=== PATIENT | female | born 1990 | race Caucasian/White ===

== ENCOUNTER 2020-01-07 16:15 | Emergency (ER) | payer OTHER ==
[2020-01-07 17:19] VITALS: BP 106/65; PULSE 82; RESP 18; TEMP 97.9
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
[2020-01-07] MEDS ORDERED: ONDANSETRON ODT 4 MG TAB PO STA (17:34)
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
== END 2020-01-07 18:35 | disposition home or self-care (01) ==
LOC: EC 16:15
DX: S06.0X0A Concussion without loss of consciousness, initial encounter (principal); Z88.6 Allergy status to analgesic agent; Z88.0 Allergy status to penicillin; W51.XXXA Accidental striking against or bumped into by another person, initial encounter; Y92.69 Other specified industrial and construction area as the place of occurrence of the external cause; Y99.0 Civilian activity done for income or pay
CPT/HCPCS: 70450; 99284

== ENCOUNTER → 2020-01-08 | Outpatient (CLI) | payer OTHER ==
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
== END | disposition home or self-care (01) ==
LOC: RADCTMAIN 12:17 → MERGE 12:17
PROVIDERS: ATTEND Emergency Medicine
DX: S13.4XXA Sprain of ligaments of cervical spine, initial encounter (principal)
CPT/HCPCS: 72125

== ENCOUNTER → 2020-01-10 | Outpatient (CLI) | payer OTHER ==
--- NOTE | 2020-01-10 09:49 | CT ---
EXAMINATION TYPE: CT brain wo con DATE OF EXAM: 01/10/2020 COMPARISON: 01/07/2020 HISTORY: 29-year-old female S00.83XD, headache, dizziness, light sensitivity, contusion of other part of head. TECHNIQUE: Examination was done in axial plane without intravenous contrast. Coronal and sagittal r econstructions performed. CT DLP: 1085 mGycm Automated exposure control for dose reduction was used. FINDINGS: There is no evidence of acute intracranial hemorrhage, acute ischemic changes, mass, mass-effect, or extra-axial fluid collection. There is no effacement of cerebral sulci or basal subarachnoid cister ns. There is no hydrocephalus. There is no midline shift. Chahal-white matter distinction is preserv ed. Paranasal sinuses and mastoid air cells are well pneumatized. Orbits and globes are intact. IMPRESSION: Stable exam without acute intracranial abnormality seen.
== END | disposition home or self-care (01) ==
LOC: RADCTMAIN 09:19
PROVIDERS: ATTEND Emergency Medicine
DX: S00.83XD Contusion of other part of head, subsequent encounter (principal)
CPT/HCPCS: 70450

== ENCOUNTER → 2020-02-04 | Outpatient (CLI) | payer OTHER ==
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
== END | disposition home or self-care (01) ==
LOC: RADCTMAIN 12:58
PROVIDERS: ATTEND Emergency Medicine
DX: S00.83XA Contusion of other part of head, initial encounter (principal); S13.4XXA Sprain of ligaments of cervical spine, initial encounter
CPT/HCPCS: 70450; 72125

== ENCOUNTER 2020-10-20 20:28 | Emergency (ER) | payer OTHER ==
[2020-10-20 20:53] VITALS: TEMP 98.2
[2020-10-20] MEDS ORDERED: SODIUM CHLORIDE 0.9% 500 ML 500 ML IV STA (21:40)
[2020-10-20] MEDS ORDERED: SODIUM CHLORIDE 0.9% 1,000 ML IV STA (21:40)
[2020-10-20] MEDS ORDERED: METOCLOPRAMIDE 5 MG/ML 2 ML VIAL IVP STA (21:40)
[2020-10-20] MEDS ORDERED: DEXAMETHASONE SOD PHOSPHATE 10 MG/ML 1 ML VIAL IV STA (21:40)
[2020-10-20] MEDS ORDERED: MAGNESIUM SULFATE-D5W PMX 1 GM in DEXTROSE/WATER 1 100ML.BAG IVPB ONE (21:41)
[2020-10-20] MEDS ORDERED: ACETAMINOPHEN TAB 500 MG TAB PO STA (21:43)
--- NOTE | 2020-10-20 21:46 | CT ---
EXAMINATION TYPE: CT brain wo con DATE OF EXAM: 10/20/2020 HISTORY: headaches x6 days. CT DLP: 1078.4 mGycm. Automated Exposure Control for Dose Reduction was Utilized. TECHNIQUE: CT scan of the head is performed without contrast. COMPARISON: 02/04/2020 FINDINGS: There is no acute intracranial hemorrhage, midline shift, or mass effect identified. Brain parenchyma appears normal. The ventricles, sulci, and cisterns are normal in size and configuration. No extra-axial fluid collection. No depressed calvarial fracture. The globes are grossly symmetric. V isualized sinuses and mastoid air cells are clear. IMPRESSION: No acute intracranial hemorrhage, midline shift, or mass effect.
--- NOTE | 2020-10-20 23:33 | ED ---
Headache HPI - General Chief Complaint: Headache Stated Complaint: Face numbness,Head pain Time Seen by Provider: 10/20/20 21:24 Mode of arrival: wheelchair Limitations: no limitations - History of Present Illness Initial Comments: This 30-year-old female presents complaining of a headache. She states that it is behind her right eye and into her right face and also into her right occipital region. This been present for 2 days. She did try some Tylenol at home as well as some Imitrex. She did not have any significant relief. She has a long history of migraine headaches that states that this one feels somewhat different than her significant than normal. It was gradual in onset. She has some slight pain into her right neck. She denies any fevers or chills. She den ies any visual complaints other than photophobia. She also has had some phonophobia. No other modifying factors. - Related Data Home Medications Medication Instructions Recorded Confirmed INSULIN LISPRO (For Pump) [humaLOG 0.01 units SQ-PUMP CONTINUOUS 01/03/20 10/20/20 (For Pump)] Previous Rx's Medication Instructions Recorded Butalb/Acetaminophen/Caffeine 1 - 2 each PO Q4H PRN #20 tab 10/20/20 [Fioricet] Allergies Allergy/AdvReac Type Severity Reaction Status Date / Time aspirin Allergy Unknown Verified 10/20/20 22:22 ibuprofen [From Motrin] Allergy Unknown Verified 10/20/20 22:22 Penicillins Allergy Unknown Verified 10/20/20 22:22 Review of Systems ROS Statement: Those systems with pertinent positive or pertinent negative responses have been documented in the HPI. ROS Other: All systems not noted in ROS Statement are negative. Past Medical History Past Medical History: Diabetes Mellitus, Fibromyalgia, No Reported History, Rheumatoid Arthritis (RA) Additional Past Medical History / Comment(s): POTS, EDS, History of Any Multi-Drug Resistant Organisms: None Reported Past Surgical History: Appendectomy, Section, No Surgical Hx Reported Past Psychological History: Anxiety Smoking Status: Never smoker Past Alcohol Use History: Occasional Past Drug Use History: None Reported General Exam - General Exam Comments Initial Comments: GENERAL: The patient is well nourished and well hydrated. VITAL SIGNS: Heart rate, blood pressure, respiratory rate reviewed as recorded in nurse's notes. EYES: Pupils are round and reactive. Extraocular movements are intact. No conjunctival / lid redness or swelling. ENT: No external evidence of injury, swelling, or ecchymosis. Airway is patent. Throat is clear. NECK: Mild tenderness to the right paracervical musculature and slightly in the right suboccipital region. HEART: Regular rate and rhythm. Good peripheral pulses. LUNGS/CHEST: Breath sounds clear and equal bilaterally. No rales, rhonchi, or wheezes. No ecchymosis, subcutaneous emphysema, or tenderness. ABDOMEN: Abdomen soft without tenderness. No palpable masses or organomegaly. No peritoneal signs. No abdominal wall swelling or ecchymosis. EXTREMITIES: No extremity tenderness. Normal muscle tone and function. No thoracolumbar tenderness. NEUROLOGIC: Sensation is grossly intact. Cranial nerve exam reveals face is symmetrical, tongue is midline, speech is clear. SKIN: No abrasions or ecchymosis is noted. No induration or masses noted. PSYCHIATRIC: Alert and oriented. Appropriate behavior and judgment. Limitations: no limitations Course Vital Signs 10/20/20 20:49 Temperature 98.2 F Pulse Rate 106 H Respiratory 18 Rate Blood Pressure 121/77 O2 Sat by Pulse 97 Oximetry Medical Decision Making - Medical Decision Making The patient was seen and examined. All diagnostics are reviewed. The computed tomography scan of the brain does not show any acute abnormalities. IV is started and she is hydrated. She receives Reglan, magnesium, and Decadron intravenously. She also receives Tylenol orally. She is feeling significantly improved on recheck. Toradol is avoided due to her ALLERGIES. It is felt as though she would benefit from discharge at this point in time. Return parameters are discussed. Close follow-up recommended. She will also be prescribed some Fioricet and referred to neurology. Disposition Clinical Impression: Migraine Disposition: HOME SELF-CARE Condition: Good Instructions (If sedation given, give patient instructions): Acute Headache (ED) Prescriptions: Butalb/Acetaminophen/Caffeine [Fioricet] 1 - 2 each PO Q4H PRN #20 tab PRN Reason: Headache Is patient prescribed a controlled substance at d/c from ED?: No Referrals: Bernardo Avendano MD [Primary Care Provider] - 1-2 days Kamryn Lopez MD [REFERRING] - As Soon As Possible Time of Disposition: 23:32
[2020-10-20 23:58] VITALS: BP 107/66; PULSE 96; RESP 16
== END 2020-10-20 23:55 | disposition home or self-care (01) ==
LOC: EC 20:28
DX: G43.909 Migraine, unspecified, not intractable, without status migrainosus (principal); E11.9 Type 2 diabetes mellitus without complications; F41.9 Anxiety disorder, unspecified; Z90.49 Acquired absence of other specified parts of digestive tract; Z79.4 Long term (current) use of insulin; Z88.0 Allergy status to penicillin; Z88.6 Allergy status to analgesic agent
CPT/HCPCS: 99284; 96365; 96375 ×2; 70450; J1100; J2765; J3475

== ENCOUNTER 2020-11-05 17:23 | Emergency (ER) | payer OTHER ==
[2020-11-05 17:35] VITALS: BP 117/74; PULSE 97; RESP 18; TEMP 99
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
== END 2020-11-05 18:55 | disposition home or self-care (01) ==
LOC: EC 17:23
DX: S93.401A Sprain of unspecified ligament of right ankle, initial encounter (principal); E11.9 Type 2 diabetes mellitus without complications; Z79.4 Long term (current) use of insulin; Z88.0 Allergy status to penicillin; Z88.6 Allergy status to analgesic agent; W20.8XXA Other cause of strike by thrown, projected or falling object, initial encounter
CPT/HCPCS: 99283

== ENCOUNTER 2021-04-20 07:51 | Emergency (ER) | payer OTHER ==
[2021-04-20 08:10] VITALS: BP 109/80; PULSE 76; TEMP 97.8
[2021-04-20] MEDS ORDERED: HYDROmorphone 1 MG/ML 1 ML SYRINGE IM STA (08:28)
--- NOTE | 2021-04-20 08:55 | ED ---
General Adult HPI - General Chief complaint: Extremity Injury, Lower Stated complaint: fall Time Seen by Provider: 04/20/21 07:54 Source: patient, EMS, RN notes reviewed Mode of arrival: EMS Limitations: no limitations - History of Present Illness Initial comments: This is a 31-year-old female presents emergency Department with chief complaint of slip and fall. She was outside walking her dog when she slipped on some ice. Patient states that she has severe low back, pelvic pain. 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 Patient states that the pain radiates on her leg she denies any bowel incontinence or bladder retention or saddle anesthesias. She has no abdominal pain no head injury no loss conscious. Patient did not receive any pain meds on EMS she initially was not wanting pain meds she states she wants to try to manage her pain. Patient denies any loss of strength of her lower extremities. - Related Data Home Medications Medication Instructions Recorded Confirmed INSULIN LISPRO (For Pump) [humaLOG 0.01 units SQ-PUMP CONTINUOUS 01/03/20 04/20/21 (For Pump)] Control (Unknown) 1 tab PO DAILY 04/20/21 04/20/21 Previous Rx's Medication Instructions Recorded HYDROcodone/APAP 7.5-325MG [[place] 1 tab PO Q6HR PRN 3 Days #12 tab 04/20/21 7.5-325] Allergies Allergy/AdvReac Type Severity Reaction Status Date / Time aspirin Allergy Anaphylaxis Verified 04/20/21 09:10 ibuprofen [From Motrin] Allergy Anaphylaxis Verified 04/20/21 09:10 latex Allergy Rash/Hives Verified 04/20/21 09:12 Penicillins Allergy Anaphylaxis Verified 04/20/21 09:10 Review of Systems ROS Statement: Those systems with pertinent positive or pertinent negative responses have been documented in the HPI. ROS Other: All systems not noted in ROS Statement are negative. 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 Absent: scleral icterus, conjunctival injection, periorbital swelling ENT exam: Present: normal exam, mucous membranes moist Neck exam: Present: normal inspection, full ROM. Absent: tenderness, meningismus, lymphadenopathy Respiratory exam: Present: normal lung sounds bilaterally. Absent: respiratory distress, wheezes, rales, rhonchi, stridor, chest wall tenderness Cardiovascular Exam: Present: regular rate, normal rhythm, normal heart sounds. Absent: systolic murmur, diastolic murmur, rubs, gallop, clicks GI/Abdominal exam: Present: soft, normal bowel sounds. Absent: distended, tenderness, guarding, rebound, rigid Extremities exam: Present: other (Lower extremity strength equal bilaterally ne urovascular intact equal warmth there is tenderness in the diffuse in the pelvic, buttocks region) Back exam: Present: tenderness (Lumbar), paraspinal tenderness, vertebral te nderness. Absent: full ROM, CVA tenderness (R), CVA tenderness (L) Neurological exam: Present: alert, oriented X3, CN II-XII intact, reflexes normal. Absent: motor sensory deficit Course Vital Signs 04/20/21 07:57 Temperature 97.8 F Pulse Rate 76 Blood Pressure 109/80 O2 Sat by Pulse 100 Oximetry Medical Decision Making - Medical Decision Making CT shows evidence of sacral fracture. Patient is neurologically intact. Patient does not have any lumbar fractures. She'll be discharged with pain control and follow-up return parameters were discussed. - Lab Data Lab Results 04/20/21 Range/Units 08:20 Urine HCG, Qual Not Detected (Not Detectd) Disposition Clinical Impression: Sacral fracture Disposition: HOME SELF-CARE Condition: Stable Instructions (If sedation given, give patient instructions): Sacral Fracture (ED) Additional Instructions: Please return to the Emergency Department if symptoms worsen or any other concerns. Prescriptions: HYDROcodone/APAP 7.5-325MG [[place] 7.5-325] 1 tab PO Q6HR PRN 3 Days #12 tab PRN Reason: pain Is patient prescribed a controlled substance at d/c from ED?: Yes When asked, does pt state using other controlled substances?: No If prescribed controlled substance>3 days was MAPS reviewed?: Prescribed <3 Days If opioid is for acute pain is fill amount 7 days or less?: Yes If Rx opioid, was Start Talking consent form obtained?: Yes Referrals: Bernardo Avendano MD [Primary Care Provider] - 1-2 days Sruthi Campbell DO [Doctor of Osteopathic Medicine] - 1-2 days Time of Disposition: 11:09
--- NOTE | 2021-04-20 10:48 | CT ---
EXAMINATION TYPE: CT lumbar spine wo con, CT pelvis wo con DATE OF EXAM: 04/20/2021 10:06 AM COMPARISON: None available HISTORY: Fall on ice today. Low back and pelvic pain. (accession [id number]), Fall on ice today. Low b ack and pelvic pain. (accession [id number]) CT DLP: 673.5 (accession [id number]), 276.4 (accession [id number]) mGycm Automated exposure control for dose reduction was used. Technique: Unenhanced multiplanar CT of the lumbar spine and pelvis was performed. Bone and soft tis stanley window settings are submitted as well as coronal and sagittal reconstructions. FINDINGS: Preserved lumbar lordosis. No significant anterolisthesis or retrolisthesis. No definite vertebral mp dy collapse or acute displaced fracture. No significant bony degenerative changes of the lumbar spine . Maintained intervertebral disc spaces. No facet dislocation or significant subluxation. No signific ant central spinal canal stenosis or neuroforaminal stenosis. No gross paraspinal lesion. A subtle cortical irregularity and linear lucency seen on the right side of the first coccygeal segme nt (image #43, series 202) suggestive of a subtle nondisplaced fracture, please correlate clinically. Minimal adjacent fat stranding is noted. Questionable subtle nondisplaced fracture of the inferior a spect of the fifth sacral segment with overlying mild fat stranding/small hematoma. This could be acu te or chronic. No other definite acute pelvic bone or hip fracture identified. Retroverted uterus. Grossly unremarka ble urinary bladder. No gross adnexal mass. Significant fecal loading of the visualized portion of th e colon. No sizable pelvic hematoma or collection. No suspicious pelvic lymphadenopathy. IMPRESSION: 1. No acute traumatic bony injury of the lumbar spine. 2. Suspected subtle nondisplaced fracture of the first coccygeal segment with questionable nondisplac ed fracture of the fifth sacral segment as described above. The latter could be acute or chronic, ple ase correlate clinically. No other definite pelvic bone fracture identified. Incidental findings as d escribed above.
== END 2021-04-20 11:38 | disposition home or self-care (01) ==
LOC: EC 07:51
DX: S32.10XA Unspecified fracture of sacrum, initial encounter for closed fracture (principal); E11.9 Type 2 diabetes mellitus without complications; M06.9 Rheumatoid arthritis, unspecified; F41.9 Anxiety disorder, unspecified; Z79.4 Long term (current) use of insulin; W00.0XXA Fall on same level due to ice and snow, initial encounter; Y93.01 Activity, walking, marching and hiking
CPT/HCPCS: 99284; 96372; 81025; 72192; 72131; J1170

== ENCOUNTER 2021-04-22 13:22 | Emergency (ER) | payer OTHER ==
[2021-04-22 13:31] VITALS: BP 117/76; PULSE 97; RESP 18; TEMP 98.1
--- NOTE | 2021-04-22 14:05 | ED ---
Lower Extremity Injury HPI - General Chief Complaint: Recheck/Abnormal Lab/Rx Stated Complaint: Revisit/Sacral Fracture Time Seen by Provider: 04/22/21 13:34 Source: patient, RN notes reviewed Mode of arrival: ambulatory Limitations: no limitations - History of Present Illness Initial Comments: This is a 31 year old female who presents to the emergency department as a revisit from 2 days ago. She was diagnosed with a sacral fracture after slipping and falling on the ice on 04/20. She continues to be in significant pain with difficulty ambulating. States that her PCP will not see her until the end of April and she is unable to see orthopedics without an official referral due to her insurance. She has taken some of the Sanibel she was prescribed 2 days ago, however she states that it just makes her fall asleep and she cannot take it regularly because she has to care for her young children. - Related Data Home Medications Medication Instructions Recorded Confirmed INSULIN LISPRO (For Pump) [humaLOG 0.01 units SQ-PUMP CONTINUOUS 01/03/20 04/20/21 (For Pump)] Control (Unknown) 1 tab PO DAILY 04/20/21 04/20/21 Previous Rx's Medication Instructions Recorded HYDROcodone/APAP 7.5-325MG [Sanibel 1 tab PO Q6HR PRN 3 Days #12 tab 04/20/21 7.5-325] Allergies Allergy/AdvReac Type Severity Reaction Status Date / Time aspirin Allergy Anaphylaxis Verified 04/22/21 13:53 ibuprofen [From Motrin] Allergy Anaphylaxis Verified 04/22/21 13:53 latex Allergy Rash/Hives Verified 04/22/21 13:53 Penicillins Allergy Anaphylaxis Verified 04/22/21 13:53 Review of Systems ROS Statement: Those systems with pertinent positive or pertinent negative responses have been documented in the HPI. ROS Other: All systems not noted in ROS Statement are negative. 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 Absent: respiratory distress, wheezes, rales, rhonchi, stridor Cardiovascular Exam: Present: regular rate, normal rhythm, normal heart sounds. Absent: systolic murmur, diastolic murmur, rubs, gallop, clicks Neurological exam: Present: alert, oriented X3, CN II-XII intact Psychiatric exam: Present: normal affect, normal mood Skin exam: Present: warm, dry, intact, normal color. Absent: rash Course Vital Signs 04/22/21 13:28 Temperature 98.1 F Pulse Rate 97 Respiratory 18 Rate Blood Pressure 117/76 O2 Sat by Pulse 100 Oximetry Medical Decision Making - Medical Decision Making This is a 31 year old female who presents to the emergency department after being diagnosed with a sacral fracture. Patient's PCP office was contacted and the physician programs assistant there is willing to see her today or tomorrow in the office and will refer her to orthopedics. Advised to take Tylenol for pain and continue to use the Sanibel sparingly. Return precautions reviewed in depth, the patient is instructed to return to the emergency department if symptoms worsen or do not improve. Patient verbalized understanding. This case was discussed in detail with the attending ED physician. Presentation, findings, and treatment plan discussed in detail as well. Disposition Clinical Impression: Sacral fracture Disposition: HOME SELF-CARE Instructions (If sedation given, give patient instructions): Sacral Fracture (ED) Additional Instructions: Return to the emergency department if symptoms worsen or do not improve. Follow up with PCP today or tomorrow before 5pm for orthopedics referral. Is patient prescribed a controlled substance at d/c from ED?: No Referrals: Bernardo Avendano MD [Primary Care Provider] - 1-2 days
== END 2021-04-22 14:37 | disposition home or self-care (01) ==
LOC: EC 13:22
DX: S32.10XA Unspecified fracture of sacrum, initial encounter for closed fracture (principal); E11.9 Type 2 diabetes mellitus without complications; F41.9 Anxiety disorder, unspecified; Z79.4 Long term (current) use of insulin; W01.0XXA Fall on same level from slipping, tripping and stumbling without subsequent striking against object, initial encounter
CPT/HCPCS: 99283

== ENCOUNTER 2021-05-14 13:18 | Emergency (ER) | payer OTHER ==
[2021-05-14 13:26] VITALS: BP 103/68; PULSE 91; RESP 18; TEMP 98.2
[2021-05-14] MEDS ORDERED: ONDANSETRON 4 MG/2 ML VIAL IVP STA (14:45)
[2021-05-14 15:32] LABS: VBG PH 7.26 (7.31-7.41)
[2021-05-14 15:33] LABS: Basophils % (A) 1 %; Eosinophils # (A) 0.1 k/uL (0-0.7); Eosinophils % (A) 1 %; HCT 46.8 % (34.0-46.0); HGB 15.3 gm/dL (11.4-16.0); Lymphocytes # (A) 1.2 k/uL (1.0-4.8); Lymphocytes % (A) 21 %; MCH 31.5 pg (25.0-35.0); MCHC 32.7 g/dL (31.0-37.0); MCV 96.6 fL (80.0-100.0); Mean Platelet Volume 7.6; Monocytes # (A) 0.2 k/uL (0-1.0); Monocytes % (A) 3 %; Neutrophils # (A) 4.2 k/uL (1.3-7.7); Neutrophils % (A) 73 %; Platelet Count 226 k/uL (150-450); RBC 4.85 m/uL (3.80-5.40); WBC 5.8 k/uL (3.8-10.6)
[2021-05-14 15:43] LABS: ALT 8 U/L (4-34); AST 16 U/L (14-36); African American GFR (CKD) >90 (>60 ml/min/1.73 sqM); Albumin 4.4 g/dL (3.5-5.0); Alkaline Phosphatase 80 U/L (38-126); Anion Gap 17 mmol/L; Blood Urea Nitrogen 15 mg/dL (7-17); Calcium 8.8 mg/dL (8.4-10.2); Carbon Dioxide 13 mmol/L (22-30); Chloride 104 mmol/L (98-107); Glucose 270 mg/dL (74-99); Magnesium 1.9 mg/dL (1.6-2.3); Non-African American GFR(CKD) >90 (>60 ml/min/1.73 sqM); Phosphorus 1.9 mg/dL (2.5-4.5); Potassium 4.6 mmol/L (3.5-5.1); Sodium 134 mmol/L (137-145); Total Bilirubin 1.6 mg/dL (0.2-1.3); Total Protein 7.7 g/dL (6.3-8.2)
[2021-05-14 15:53] LABS: Appearance,Urine Clear (Clear); Bilirubin,Urine Negative (Negative); Blood,Urine Small (Negative); Color,Urine Yellow; Glucose,Urine (UA) 4+ (Negative); Leukocyte Esterase,Urine Negative (Negative); Mucus,Urine Rare /hpf; Nitrite,Urine Negative (Negative); PH, Urine 5.5 (5.0-8.0); Protein,Urine Trace (Negative); RBC,Urine <1 /hpf (0-5); Specific Gravity,Urine 1.028 (1.001-1.035); Squamous Epithelial Cell,Urine 4 /hpf (0-4); Urobilinogen,Urine <2.0 mg/dL (<2.0); WBC,Urine 2 /hpf (0-5)
[2021-05-14 16:02] LABS: Ketones,Urine 4+ (Negative)
[2021-05-14] MEDS ORDERED: SODIUM CHLORIDE 0.9% 1,000 ML IV STA (16:03)
[2021-05-14 16:08] LABS: Influenza A Not Detected (Not Detectd); Influenza B Not Detected (Not Detectd)
[2021-05-14] MEDS ORDERED: POTASSIUM CHLORIDE 20 MEQ in WATER FOR INJECTION 1 100ML.BAG IVPB STA (16:10)
[2021-05-14] MEDS ORDERED: INSULIN REGULAR 100 UNIT/ML VIAL (IV) IV ONE (16:29)
[2021-05-14] MEDS ORDERED: INSULIN REGULAR 100 UNIT in SODIUM CHLORIDE 0.9% 100 ML IV SCH (17:00)
[2021-05-14] MEDS ORDERED: D5-0.45% NACL WITH KCL 20MEQ/L 1,000 ML IV SCH (17:30)
--- NOTE | 2021-05-14 19:37 | ED ---
General Adult HPI - General Chief complaint: Recheck/Abnormal Lab/Rx Stated complaint: Ketoacidosis Time Seen by Provider: 05/14/21 14:28 Source: patient, family, RN notes reviewed Mode of arrival: ambulatory Limitations: no limitations - History of Present Illness Initial comments: This is a 31 year old female who presents to the emergency department for concerns that she may be in DKA. States that for the last 2 days she has had nausea and vomiting, and overall feels unwell. She has an insulin pump with humalog, however she has been unable to get her blood sugar below 200-300. Yesterday she gave herself a SQ insulin injection due to the elevated blood sugar, but got no relief from that either. Denies any recent illness or precipitating events. She cannot recall when she was last in DKA, but states that this feels very similar. MD Complaint: Elevated blood sugar Onset/Timin -: days(s) - Related Data Home Medications Medication Instructions Recorded Confirmed INSULIN LISPRO (For Pump) [humaLOG 0.01 units SQ-PUMP CONTINUOUS 01/03/20 05/14/21 (For Pump)] Control (Unknown) 1 tab PO DAILY 04/20/21 05/14/21 Allergies Allergy/AdvReac Type Severity Reaction Status Date / Time aspirin Allergy Anaphylaxis Verified 05/14/21 15:55 ibuprofen [From Motrin] Allergy Anaphylaxis Verified 05/14/21 15:55 latex Allergy Rash/Hives Verified 05/14/21 15:55 Penicillins Allergy Anaphylaxis Verified 05/14/21 15:55 Review of Systems ROS Statement: Those systems with pertinent positive or pertinent negative responses have been documented in the HPI. ROS Other: All systems not noted in ROS Statement are negative. Constitutional: Denies: fever, chills ENT: Denies: ear pain, throat pain Respiratory: Denies: cough, dyspnea Cardiovascular: Denies: chest pain, palpitations Endocrine: Reports: fatigue Gastrointestinal: Reports: nausea, vomiting. 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 Absent: tenderness, meningismus, lymphadenopathy Respiratory exam: Present: normal lung sounds bilaterally. Absent: respiratory distress, wheezes, rales, rhonchi, stridor Cardiovascular Exam: Present: regular rate, normal rhythm, normal heart sounds. Absent: systolic murmur, diastolic murmur, rubs, gallop, clicks GI/Abdominal exam: Present: soft, normal bowel sounds. Absent: distended, tenderness, guarding, rebound, rigid Neurological exam: Present: alert, oriented X3, CN II-XII intact Psychiatric exam: Present: normal affect, normal mood Skin exam: Present: warm, dry, intact, normal color. Absent: rash Course Vital Signs 05/14/21 13:23 Temperature 98.2 F Pulse Rate 91 Respiratory 18 Rate Blood Pressure 103/68 O2 Sat by Pulse 100 Oximetry Medical Decision Making - Medical Decision Making This is a 31-year-old female who presents to the emergency department with concerns of being in DKA. Lab work revealed she is in mild DKA. Discussed the case with Dr. Castañeda, who advised that the patient should be admitted for IV insulin, fluids, and reevaluation of lab work. Patient states that she does not wish to be admitted. Patient given the option of remaining in the emergency department for the next few hours in order to be treated with insulin and fluids, followed by a recheck of lab work to evaluate her DKA status. The other option is for her to leave AMA. Patient states that she has 3 children at home and she is not comfortable leaving them in another family member's custody. Patient signed an AMA form accordingly. Patient expresses understanding that it would be in her best interest to be admitted to the hospital for management of DKA, and that DKA can be a life threatening condition if not treated. - Lab Data Result diagrams: 05/14/21 15:20 05/14/21 15:20 Lab Results 05/14/21 05/14/21 05/14/21 Range/Units 15:16 15:16 15:16 WBC (3.8-10.6) k/uL RBC (3.80-5.40) m/uL Hgb (11.4-16.0) gm/dL Hct (34.0-46.0) % MCV (80.0-100.0) fL MCH (25.0-35.0) pg MCHC (31.0-37.0) g/dL RDW (11.5-15.5) % Plt Count (150-450) k/uL MPV Neutrophils % % Lymphocytes % % Monocytes % % Eosinophils % % Basophils % % Neutrophils # (1.3-7.7) k/uL Lymphocytes # (1.0-4.8) k/uL Monocytes # (0-1.0) k/uL Eosinophils # (0-0.7) k/uL Basophils # (0-0.2) k/uL VBG pH (7.31-7.41) VBG pCO2 (37-51) mmHg VBG HCO3 (24-28) mmol/L Sodium (137-145) mmol/L Potassium (3.5-5.1) mmol/L Chloride (98-107) mmol/L Carbon Dioxide (22-30) mmol/L Anion Gap mmol/L BUN (7-17) mg/dL Creatinine (0.52-1.04) mg/dL Est GFR (CKD-EPI)AfAm (>60 ml/min/1.73 sqM) Est GFR (CKD-EPI)NonAf (>60 ml/min/1.73 sqM) Glucose (74-99) mg/dL Calcium (8.4-10.2) mg/dL Phosphorus (2.5-4.5) mg/dL Magnesium (1.6-2.3) mg/dL Total Bilirubin (0.2-1.3) mg/dL AST (14-36) U/L ALT (4-34) U/L Alkaline Phosphatase (38-126) U/L Total Protein (6.3-8.2) g/dL Albumin (3.5-5.0) g/dL Urine Color Yellow Urine Appearance Clear (Clear) Urine pH 5.5 (5.0-8.0) Ur Specific Harwood 1.028 (1.001-1.035) Urine Protein Trace H (Negative) Urine Glucose (UA) 4+ H (Negative) Urine Ketones 4+ H (Negative) Urine Blood Small H (Negative) Urine Nitrite Negative (Negative) Urine Bilirubin Negative (Negative) Urine Urobilinogen <2.0 (<2.0) mg/dL Ur Leukocyte Esterase Negative (Negative) Urine RBC <1 (0-5) /hpf Urine WBC 2 (0-5) /hpf Ur Squamous Epith Cells 4 (0-4) /hpf Urine Mucus Rare H (None) /hpf Urine HCG, Qual Not Detected (Not Detectd) Acetone, Qual (Negative) Influenza Type A (PCR) Not Detected (Not Detectd) Influenza Type B (PCR) Not Detected (Not Detectd) RSV (PCR) Not Detected (Not Detectd) SARS-CoV-2 (PCR) Not Detected (Not Detectd) 05/14/21 05/14/21 05/14/21 Range/Units 15:20 15:20 15:20 WBC 5.8 (3.8-10.6) k/uL RBC 4.85 (3.80-5.40) m/uL Hgb 15.3 (11.4-16.0) gm/dL Hct 46.8 H (34.0-46.0) % MCV 96.6 (80.0-100.0) fL MCH 31.5 (25.0-35.0) pg MCHC 32.7 (31.0-37.0) g/dL RDW 12.0 (11.5-15.5) % Plt Count 226 (150-450) k/uL MPV 7.6 Neutrophils % 73 % Lymphocytes % 21 % Monocytes % 3 % Eosinophils % 1 % Basophils % 1 % Neutrophils # 4.2 (1.3-7.7) k/uL Lymphocytes # 1.2 (1.0-4.8) k/uL Monocytes # 0.2 (0-1.0) k/uL Eosinophils # 0.1 (0-0.7) k/uL Basophils # 0.0 (0-0.2) k/uL VBG pH 7.26 L (7.31-7.41) VBG pCO2 38 (37-51) mmHg VBG HCO3 16 L (24-28) mmol/L Sodium 134 L (137-145) mmol/L Potassium 4.6 (3.5-5.1) mmol/L Chloride 104 (98-107) mmol/L Carbon Dioxide 13 L (22-30) mmol/L Anion Gap 17 mmol/L BUN 15 (7-17) mg/dL Creatinine 0.82 (0.52-1.04) mg/dL Est GFR (CKD-EPI)AfAm >90 (>60 ml/min/1.73 sqM) Est GFR (CKD-EPI)NonAf >90 (>60 ml/min/1.73 sqM) Glucose 270 H (74-99) mg/dL Calcium 8.8 (8.4-10.2) mg/dL Phosphorus 1.9 L (2.5-4.5) mg/dL Magnesium 1.9 (1.6-2.3) mg/dL Total Bilirubin 1.6 H (0.2-1.3) mg/dL AST 16 (14-36) U/L ALT 8 (4-34) U/L Alkaline Phosphatase 80 (38-126) U/L Total Protein 7.7 (6.3-8.2) g/dL Albumin 4.4 (3.5-5.0) g/dL Urine Color Urine Appearance (Clear) Urine pH (5.0-8.0) Ur Specific Harwood (1.001-1.035) Urine Protein (Negative) Urine Glucose (UA) (Negative) Urine Ketones (Negative) Urine Blood (Negative) Urine Nitrite (Negative) Urine Bilirubin (Negative) Urine Urobilinogen (<2.0) mg/dL Ur Leukocyte Esterase (Negative) Urine RBC (0-5) /hpf Urine WBC (0-5) /hpf Ur Squamous Epith Cells (0-4) /hpf Urine Mucus (None) /hpf Urine HCG, Qual (Not Detectd) Acetone, Qual Positive (Negative) Influenza Type A (PCR) (Not Detectd) Influenza Type B (PCR) (Not Detectd) RSV (PCR) (Not Detectd) SARS-CoV-2 (PCR) (Not Detectd) Disposition Clinical Impression: DKA (diabetic ketoacidosis) Disposition: Left Against Medical Advice Referrals: Bernardo Avendano MD [Primary Care Provider] - 1-2 days
== END 2021-05-14 17:11 | disposition left against medical advice (07) ==
LOC: EC 13:18
DX: E11.10 Type 2 diabetes mellitus with ketoacidosis without coma (principal); Z20.822 Contact with and (suspected) exposure to COVID-19; Z53.29 Procedure and treatment not carried out because of patient's decision for other reasons; Z88.6 Allergy status to analgesic agent; Z91.040 Latex allergy status; Z88.0 Allergy status to penicillin; Z96.41 Presence of insulin pump (external) (internal)
CPT/HCPCS: 36415; 80053; 81001; 81025; 82009; 82803; 83735; 84100; 85025; 87636; 99283

== ENCOUNTER 2022-01-05 12:46 | Inpatient (IN) | payer OTHER ==
[2022-01-05 12:49] VITALS: TEMP 98
[2022-01-05] MEDS ORDERED: SODIUM CHLORIDE 0.9% 500 ML 500 ML IV STA (13:06)
[2022-01-05 13:31] LABS: Basophils % (A) 0 %; Eosinophils % (A) 0 %; HCT 47.3 % (34.0-46.0); HGB 15.9 gm/dL (11.4-16.0); Lymphocytes # (A) 0.5 k/uL (1.0-4.8); Lymphocytes % (A) 5 %; MCH 32.2 pg (25.0-35.0); MCHC 33.6 g/dL (31.0-37.0); MCV 96.1 fL (80.0-100.0); Mean Platelet Volume 7.9; Monocytes # (A) 0.1 k/uL (0-1.0); Monocytes % (A) 1 %; Neutrophils # (A) 8.5 k/uL (1.3-7.7); Neutrophils % (A) 92 %; Platelet Count 280 k/uL (150-450); RBC 4.93 m/uL (3.80-5.40); RDW 12.2 % (11.5-15.5); WBC 9.2 k/uL (3.8-10.6)
[2022-01-05 13:40] LABS: ALT 11 U/L (4-34); AST 20 U/L (14-36); African American GFR (CKD) >90 (>60 ml/min/1.73 sqM); Alkaline Phosphatase 113 U/L (38-126); Anion Gap 23 mmol/L; Blood Urea Nitrogen 16 mg/dL (7-17); Chloride 105 mmol/L (98-107); Glucose 415 mg/dL (74-99); Magnesium 1.8 mg/dL (1.6-2.3); Non-African American GFR(CKD) 84 (>60 ml/min/1.73 sqM); Sodium 136 mmol/L (137-145); Total Protein 8.3 g/dL (6.3-8.2)
[2022-01-05 13:42] LABS: Carbon Dioxide 8 mmol/L (22-30)
[2022-01-05 13:49] LABS: INR 0.9 (<1.2); Partial Thromboplastin Time 22.8 sec (22.0-30.0); Prothrombin Time 10.1 sec (9.0-12.0)
--- NOTE | 2022-01-05 13:49 | XR ---
EXAMINATION TYPE: XR chest 2V DATE OF EXAM: 01/05/2022 COMPARISON: NONE HISTORY: Chest pain. TECHNIQUE: Frontal and lateral views of the chest are obtained. FINDINGS: There is no focal air space opacity, pleural effusion, or pneumothorax seen. The cardiac silhouette size is within normal limits. Underlying scoliotic curvature or positioning. Overlying EKG leads. IMPRESSION: No acute process.
[2022-01-05] MEDS ORDERED: SODIUM CHLORIDE 0.9% 1,000 ML IV ONE (14:04)
--- NOTE | 2022-01-05 14:04 | ED ---
General Adult HPI - General Chief complaint: Chest Pain Stated complaint: chest pain Time Seen by Provider: 01/05/22 12:52 Source: patient, RN notes reviewed, old records reviewed Mode of arrival: ambulatory Limitations: no limitations - History of Present Illness Initial comments: This is a 31-year-old female with past medical history significant for diabetes type 1, Marissa-Danlos syndrome, rheumatoid arthritis, pots, and fibromyalgia. Patient comes in today complaining that she has had some left-sided neck pain down into the area just medial of her scapula on the left. Patient states she also has some anterior chest pain. Patient states movement and deep breathing seemed to increase those pains. Patient is on denies any numbness or weakness. Patient states she does have a migraine headache which is been ongoing for 2 weeks which she states is normal for her. Patient denies any chest palpitations. Patient denies any difficulty breathing or shortness of breath. Patient denies any abdominal pain patient denies nausea vomiting diarrhea. - Related Data Home Medications Medication Instructions Recorded Confirmed INSULIN LISPRO (For Pump) [humaLOG 0.01 units SQ-PUMP CONTINUOUS 01/03/20 05/14/21 (For Pump)] Control (Unknown) 1 tab PO DAILY 04/20/21 05/14/21 Allergies Allergy/AdvReac Type Severity Reaction Status Date / Time aspirin Allergy Anaphylaxis Verified 01/05/22 12:49 ibuprofen [From Motrin] Allergy Anaphylaxis Verified 01/05/22 12:49 latex Allergy Rash/Hives Verified 01/05/22 12:49 Penicillins Allergy Anaphylaxis Verified 01/05/22 12:49 Review of Systems ROS Statement: Those systems with pertinent positive or pertinent negative responses have been documented in the HPI. ROS Other: All systems not noted in ROS Statement are negative. Past Medical History Past Medical History: Diabetes Mellitus, Fibromyalgia, No Reported History, Rheumatoid Arthritis (RA) Additional Past Medical History / Comment(s): Elhersdanlos Syndrome History of Any Multi-Drug Resistant Organisms: None Reported Past Surgical History: Appendectomy, Section, No Surgical Hx Reported Past Psychological History: Anxiety Smoking Status: Never smoker Past Alcohol Use History: Occasional Past Drug Use History: None Reported General Exam - General Exam Comments Initial Comments: GENERAL: Patient is well-developed and well-nourished. Patient is nontoxic and well- hydrated and is in mild distress. ENT: Neck is soft and supple. No significant lymphadenopathy is noted. Oropharynx is clear. Moist mucous membranes. Patent increased pain in the left trapezius muscle with turning the head to the right or left and looking down. EYES: The sclera were anicteric and conjunctiva were pink and moist. Extraocular movements were intact and pupils were equal round and reactive to light. Eye lids were unremarkable. PULMONARY: Unlabored respirations. Good breath sounds bilaterally. No audible rales rhonchi or wheezing was noted. CARDIOVASCULAR: Patient is a regular rate and rhythm and the rate is about 100 beats minute ABDOMEN: Soft and nontender with normal bowel sounds. SKIN: Skin is clear with no lesions or rashes and otherwise unremarkable. NEUROLOGIC: Patient is alert and oriented x3. Cranial nerves II through XII are grossly intact. Motor and sensory are also intact. Normal speech, volume and content. Symmetrical smile. MUSCULOSKELETAL: Normal extremities with adequate strength and full range of motion. No lower extremity swelling or edema. No calf tenderness. LYMPHATICS: No significant lymphadenopathy is noted PSYCHIATRIC: Normal psychiatric evaluation. Limitations: no limitations Course Vital Signs 01/05/22 01/05/22 01/05/22 12:47 14:00 14:30 Temperature 98.0 F Pulse Rate 104 H 96 92 Respiratory 20 16 18 Rate Blood Pressure 119/70 113/59 102/64 O2 Sat by Pulse 100 100 99 Oximetry 01/05/22 01/05/22 15:00 15:48 Temperature Pulse Rate 108 H 101 H Respiratory 16 18 Rate Blood Pressure 98/60 107/66 O2 Sat by Pulse 99 100 Oximetry Medical Decision Making - Medical Decision Making EKG shows sinus tachycardia at 103 bpm NE interval 136 dresses 90 QT interval 373 QTC is 433. Patient's EKG shows no ST segment elevation or depression. Patient's sugar was elevated patient was positive acetone patient's bicarb was 8. I believe the patient and indicated this point I started the patient on insulin drip. Patient also got a fluid bolus of 1.5 L. Patient's d-dimer was elevated so I did a computed tomography scan of the chest. I interpreted the computed tomography scan computed tomography scan of the chest. I didn't see any PVCs on the CAT scan or aortic dissections. I spoke with Dr. Cutler he agreed to admit the patient admitted the patient I wrote admitting orders I continue the insulin drip on the floor. - Lab Data Result diagrams: 01/05/22 13:24 01/05/22 16:07 Lab Results 01/05/22 01/05/22 01/05/22 Range/Units 13:24 13:24 13:24 WBC 9.2 (3.8-10.6) k/uL RBC 4.93 (3.80-5.40) m/uL Hgb 15.9 (11.4-16.0) gm/dL Hct 47.3 H (34.0-46.0) % MCV 96.1 (80.0-100.0) fL MCH 32.2 (25.0-35.0) pg MCHC 33.6 (31.0-37.0) g/dL RDW 12.2 (11.5-15.5) % Plt Count 280 (150-450) k/uL MPV 7.9 Neutrophils % 92 % Lymphocytes % 5 % Monocytes % 1 % Eosinophils % 0 % Basophils % 0 % Neutrophils # 8.5 H (1.3-7.7) k/uL Lymphocytes # 0.5 L (1.0-4.8) k/uL Monocytes # 0.1 (0-1.0) k/uL Eosinophils # 0.0 (0-0.7) k/uL Basophils # 0.0 (0-0.2) k/uL PT 10.1 (9.0-12.0) sec INR 0.9 (<1.2) APTT 22.8 (22.0-30.0) sec D-Dimer 0.81 H (<0.60) mg/L FEU Sodium 136 L (137-145) mmol/L Potassium 5.0 (3.5-5.1) mmol/L Chloride 105 (98-107) mmol/L Carbon Dioxide 8 L* (22-30) mmol/L Anion Gap 23 mmol/L BUN 16 (7-17) mg/dL Creatinine 0.92 (0.52-1.04) mg/dL Est GFR (CKD-EPI)AfAm >90 (>60 ml/min/1.73 sqM) Est GFR (CKD-EPI)NonAf 84 (>60 ml/min/1.73 sqM) Glucose 415 H (74-99) mg/dL POC Glucose (mg/dL) (70-110) mg/dL POC Glu Hull Inspector ID Calcium 9.0 (8.4-10.2) mg/dL Magnesium 1.8 (1.6-2.3) mg/dL Total Bilirubin 1.0 (0.2-1.3) mg/dL AST 20 (14-36) U/L ALT 11 (4-34) U/L Alkaline Phosphatase 113 (38-126) U/L Troponin I (0.000-0.034) ng/mL Total Protein 8.3 H (6.3-8.2) g/dL Albumin 5.0 (3.5-5.0) g/dL Urine Color Urine Appearance (Clear) Urine pH (5.0-8.0) Ur Specific [place] (1.001-1.035) Urine Protein (Negative) Urine Glucose (UA) (Negative) Urine Ketones (Negative) Urine Blood (Negative) Urine Nitrite (Negative) Urine Bilirubin (Negative) Urine Urobilinogen (<2.0) mg/dL Ur Leukocyte Esterase (Negative) Urine RBC (0-5) /hpf Urine WBC (0-5) /hpf Ur Squamous Epith Cells (0-4) /hpf Urine Bacteria (None) /hpf Urine Mucus (None) /hpf Acetone, Qual (Negative) 01/05/22 01/05/22 01/05/22 Range/Units 13:24 13:24 13:44 WBC (3.8-10.6) k/uL RBC (3.80-5.40) m/uL Hgb (11.4-16.0) gm/dL Hct (34.0-46.0) % MCV (80.0-100.0) fL MCH (25.0-35.0) pg MCHC (31.0-37.0) g/dL RDW (11.5-15.5) % Plt Count (150-450) k/uL MPV Neutrophils % % Lymphocytes % % Monocytes % % Eosinophils % % Basophils % % Neutrophils # (1.3-7.7) k/uL Lymphocytes # (1.0-4.8) k/uL Monocytes # (0-1.0) k/uL Eosinophils # (0-0.7) k/uL Basophils # (0-0.2) k/uL PT (9.0-12.0) sec INR (<1.2) APTT (22.0-30.0) sec D-Dimer (<0.60) mg/L FEU Sodium (137-145) mmol/L Potassium (3.5-5.1) mmol/L Chloride (98-107) mmol/L Carbon Dioxide (22-30) mmol/L Anion Gap mmol/L BUN (7-17) mg/dL Creatinine (0.52-1.04) mg/dL Est GFR (CKD-EPI)AfAm (>60 ml/min/1.73 sqM) Est GFR (CKD-EPI)NonAf (>60 ml/min/1.73 sqM) Glucose (74-99) mg/dL POC Glucose (mg/dL) (70-110) mg/dL POC Glu Hull Inspector ID Calcium (8.4-10.2) mg/dL Magnesium (1.6-2.3) mg/dL Total Bilirubin (0.2-1.3) mg/dL AST (14-36) U/L ALT (4-34) U/L Alkaline Phosphatase (38-126) U/L Troponin I <0.012 (0.000-0.034) ng/mL Total Protein (6.3-8.2) g/dL Albumin (3.5-5.0) g/dL Urine Color Yellow Urine Appearance Cloudy H (Clear) Urine pH 5.5 (5.0-8.0) Ur Specific [place] 1.028 (1.001-1.035) Urine Protein 1+ H (Negative) Urine Glucose (UA) 4+ H (Negative) Urine Ketones 4+ H (Negative) Urine Blood Large H (Negative) Urine Nitrite Negative (Negative) Urine Bilirubin Negative (Negative) Urine Urobilinogen <2.0 (<2.0) mg/dL Ur Leukocyte Esterase Negative (Negative) Urine RBC 10 H (0-5) /hpf Urine WBC 9 H (0-5) /hpf Ur Squamous Epith Cells 6 H (0-4) /hpf Urine Bacteria Rare H (None) /hpf Urine Mucus Rare H (None) /hpf Acetone, Qual Positive (Negative) 01/05/22 01/05/22 01/05/22 Range/Units 15:49 15:51 16:07 WBC (3.8-10.6) k/uL RBC (3.80-5.40) m/uL Hgb (11.4-16.0) gm/dL Hct (34.0-46.0) % MCV (80.0-100.0) fL MCH (25.0-35.0) pg MCHC (31.0-37.0) g/dL RDW (11.5-15.5) % Plt Count (150-450) k/uL MPV Neutrophils % % Lymphocytes % % Monocytes % % Eosinophils % % Basophils % % Neutrophils # (1.3-7.7) k/uL Lymphocytes # (1.0-4.8) k/uL Monocytes # (0-1.0) k/uL Eosinophils # (0-0.7) k/uL Basophils # (0-0.2) k/uL PT (9.0-12.0) sec INR (<1.2) APTT (22.0-30.0) sec D-Dimer (<0.60) mg/L FEU Sodium 135 L (137-145) mmol/L Potassium 5.3 H (3.5-5.1) mmol/L Chloride 109 H (98-107) mmol/L Carbon Dioxide 11 L (22-30) mmol/L Anion Gap 15 mmol/L BUN 14 (7-17) mg/dL Creatinine 0.77 (0.52-1.04) mg/dL Est GFR (CKD-EPI)AfAm >90 (>60 ml/min/1.73 sqM) Est GFR (CKD-EPI)NonAf >90 (>60 ml/min/1.73 sqM) Glucose 274 H (74-99) mg/dL POC Glucose (mg/dL) 297 H 270 H (70-110) mg/dL POC Glu Hull Inspector ID Fabian, Angelia [place], Angelia Calcium (8.4-10.2) mg/dL Magnesium (1.6-2.3) mg/dL Total Bilirubin (0.2-1.3) mg/dL AST (14-36) U/L ALT (4-34) U/L Alkaline Phosphatase (38-126) U/L Troponin I (0.000-0.034) ng/mL Total Protein (6.3-8.2) g/dL Albumin (3.5-5.0) g/dL Urine Color Urine Appearance (Clear) Urine pH (5.0-8.0) Ur Specific [place] (1.001-1.035) Urine Protein (Negative) Urine Glucose (UA) (Negative) Urine Ketones (Negative) Urine Blood (Negative) Urine Nitrite (Negative) Urine Bilirubin (Negative) Urine Urobilinogen (<2.0) mg/dL Ur Leukocyte Esterase (Negative) Urine RBC (0-5) /hpf Urine WBC (0-5) /hpf Ur Squamous Epith Cells (0-4) /hpf Urine Bacteria (None) /hpf Urine Mucus (None) /hpf Acetone, Qual (Negative) Critical Care Time Critical Care Time: Yes Total Critical Care Time: 35 Disposition Clinical Impression: Diabetic ketoacidosis Disposition: ADMITTED IP TO THIS [facility] Referrals: Kenji Flores MD [Primary Care Provider] - 1-2 days Time of Disposition: 16:15
[2022-01-05 14:08] LABS: Appearance,Urine Cloudy (Clear); Bacteria,Urine Rare /hpf; Bilirubin,Urine Negative (Negative); Blood,Urine Large (Negative); Color,Urine Yellow; Glucose,Urine (UA) 4+ (Negative); Leukocyte Esterase,Urine Negative (Negative); Mucus,Urine Rare /hpf; Nitrite,Urine Negative (Negative); PH, Urine 5.5 (5.0-8.0); Protein,Urine 1+ (Negative); RBC,Urine 10 /hpf (0-5); Specific Gravity,Urine 1.028 (1.001-1.035); Squamous Epithelial Cell,Urine 6 /hpf (0-4); Urobilinogen,Urine <2.0 mg/dL (<2.0); WBC,Urine 9 /hpf (0-5)
[2022-01-05 14:29] LABS: Ketones,Urine 4+ (Negative)
[2022-01-05] MEDS ORDERED: INSULIN REGULAR BOLUS (FROM DRIP BAG) IV ONE (15:00)
[2022-01-05] MEDS ORDERED: Potassium Replacement Protocol 1 EACH MISC MISCELLANE PRN (15:00)
[2022-01-05] MEDS ORDERED: INSULIN REGULAR 100 UNIT in SODIUM CHLORIDE 0.9% 100 ML IV SCH (15:00)
[2022-01-05] MEDS ORDERED: Magnesium Replacement Protocol 1 EACH MISC MISCELLANE PRN (15:00)
[2022-01-05] MEDS ORDERED: SODIUM CHLORIDE 0.9% 1,000 ML IV SCH (15:00)
--- NOTE | 2022-01-05 15:48 | CT ---
EXAMINATION TYPE: CT chest angio for PE DATE OF EXAM: 01/05/2022 COMPARISON: HISTORY: chest pain CT DLP: 291.9 mGycm CONTRAST: CT chest with contrast and 3D reconstruction with MIP imaging is performed with IV Contrast, patient injected with 80cc mL of Isovue 370. Contrast-enhanced CT of the chest was performed through the course of the pulmonary arteries with danielle g and mediastinal window settings submitted. 3D reconstruction with MIP imaging was also performed. PULMONARY ARTERIES: No evidence for pulmonary embolism. No saddle embolism seen. Pulmonary arteries o pacify normally. LUNGS: The lungs are clear and free of infiltrate. No evidence for atelectasis. 4 mm pulmonary nodule superior segment right lower lobe. 5 mm left lower lobe pulmonary nodule image 48. 4 mm left lower l obe pulmonary nodule image 93. No pleural effusion. MEDIASTINUM: Thoracic aorta is of normal caliber,however, evaluation is limited given timing of the contrast bolus. If there is concern for thoracic aortic pathology consider GRETCHEN. Correlate clinicall y . The heart is not enlarged. No evidence for mediastinal mass. No mediastinal lymph nodes greater than 1cm. HILAR STRUCTURES: No evidence for mass. No hilar lymph nodes greater than 1 cm. UPPER ABDOMEN: No significant abnormality is seen. IMPRESSION: 1. No evidence for Pulmonary embolism at this time. 2. A few scattered pulmonary nodules are nonspecific. Consider follow-up study in one year.
[2022-01-05 15:49] VITALS: RESP 18
[2022-01-05 15:54] LABS: Glucose,Whole Blood 297 mg/dL (70-110)
[2022-01-05 15:54] LABS: Glucose,Whole Blood 270 mg/dL (70-110)
[2022-01-05] MEDS ORDERED: D5-0.45% NACL WITH KCL 20MEQ/L 1,000 ML IV ONE (16:00)
[2022-01-05 16:30] LABS: African American GFR (CKD) >90 (>60 ml/min/1.73 sqM); Anion Gap 15 mmol/L; Blood Urea Nitrogen 14 mg/dL (7-17); Carbon Dioxide 11 mmol/L (22-30); Chloride 109 mmol/L (98-107); Glucose 274 mg/dL (74-99); Non-African American GFR(CKD) >90 (>60 ml/min/1.73 sqM); Potassium 5.3 mmol/L (3.5-5.1); Sodium 135 mmol/L (137-145)
[2022-01-05 16:46] LABS: Glucose,Whole Blood 269 mg/dL (70-110)
[2022-01-05 16:46] LABS: Glucose,Whole Blood 272 mg/dL (70-110)
[2022-01-05 16:54] LABS: VBG PH 7.13 (7.31-7.41)
[2022-01-05 17:21] VITALS: BP 92/64; PULSE 99
[2022-01-05 17:34] LABS: Glucose,Whole Blood 279 mg/dL (70-110)
--- NOTE | 2022-01-05 17:37 | P.HPIM ---
History of Present Illness H&P Date: 01/05/22 Patient is a 31-year-old female with PMH of type 1 diabetes mellitus on insulin pump, Marissa-Danlos syndrome, rheumatoid arthritis, POTS and fibromyalgia that presents the ED for chest pain. Patient reports left-sided posterior neck pain that started this morning. Her neck pain was associated with photophobia. Patient reports that the symptoms are consistent with migraines that she has suffered in the past. Shortly after she experienced left-sided chest pain. Chest pain was sharp and stabbing in nature and radiated to the back. Pain was 10 out of 10 in severity. Pain is worsened with deep inspiration. There was no alleviating factors. She also experienced one episode of NBNB vomiting. These symptoms prompted her to come to the ED. She denies any cough or recent infection. She denies any fever or chills. She denies any shortness of breath or palpitations. She denies any lightheadedness. She denies any stiff neck. She denies any abdominal pain, changes in urination or bowel habits. No changes in appetite or weight. She denies any lightheadedness, numbness/weakness/tin gling of the extremities. Patient reports being diagnosed with Marissa-Danlos syndrome, rheumatoid a rthritis, POTS in [place]. She has seen a mechanical expert once during her . She has never been started on medication. 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 In the ED, she was noted to be tachycardic with heart rate in the 100s. Vital signs are otherwise stable. CBC showed hematocrit of 47.3. D-dimer was 0.81. Coagulation panel was negative. CMP showed sodium 136, bicarb of 8 and glucose of 415. Initial troponin was less than 0.012, EKG showing sinus tachycardia. Urinalysis showed 4+ ketones, large blood, negative for nitrite or leukocyte esterase. Chest x-ray was negative. CTA chest was negative for PE or aortic dissection. Patient is admitted for diabetic ketoacidosis. Review of systems is performed and is negative except above. General: non toxic, no distress, appears at stated age Derm: warm, dry Head: atraumatic, normocephalic, symmetric Eyes: EOMI, no lid lag, anicteric sclera Mouth: no lip lesion, mucus membranes moist Cardiovascular: S1S2 reg, no murmur, positive posterior tibial pulse bilateral, Lungs: CTA bilateral, no rhonchi, no rales , no accessory muscle use Abdominal: soft, nontender to palpation, no guarding, no appreciable organomegaly Ext: no gross muscle atrophy, no edema, no contractures Neuro: CN II-XI grossly intact, no focal neuro deficits Psych: Alert, oriented, appropriate affect #Diabetic ketoacidosis #Chest pain #Pulmonary nodules #Elevated d-dimer #Migraine headache Chronic conditions: Marissa-Danlos syndrome, rheumatoid arthritis, POTS and fibromyalgia Initial blood glucose 415. Bicarbonate of 8. Elevated anion gap. Patient be started on insulin drip. Start D5 half-normal saline with KCl at 150 mL/h. Telemetry monitoring. Accu-Cheks hourly. Repeat BMP every 4 hours. Patient will need to have her insulin pump evaluated by Dr. Harley. Initial troponin is negative with EKG showing sinus tachycardia. D-Dimer elevated, CTA chest negative for PE or aortic dissection. Chest pain appears pleuritic in nature. Possibly pleursy. Given elevated D-Dimer, we will obtain a COVID 19 test. She will need a repeat CT chest to evaluate for pulmonary nodule in 1 year. Toradol as needed for headache. Patient will need to follow up with a Rhematologist on discharge. DVT prophylaxis: Heparin Discussed with: Patient, ED physician Anticipated discharge: 2-[address]: Home A total of 35 minutes was spent on the care of this complex patient more than 50% of the time was spent in counseling and care coordination. Patient names her boyfriend Yariel decision-maker if she can't make decisions for herself. Patient would like to be full code. Past Medical History Past Medical History: Diabetes Mellitus, Fibromyalgia, No Reported History, Rheumatoid Arthritis (RA) Additional Past Medical History / Comment(s): Elhersdanlos Syndrome History of Any Multi-Drug Resistant Organisms: None Reported Past Surgical History: Appendectomy, Section, No Surgical Hx Reported Past Psychological History: Anxiety Smoking Status: Never smoker Past Alcohol Use History: Occasional Past Drug Use History: None Reported Medications and Allergies Home Medications Medication Instructions Recorded Confirmed Type INSULIN LISPRO (For Pump) [humaLOG 0.01 units SQ-PUMP CONTINUOUS 01/03/20 01/05/22 History (For Pump)] Aviane Tab 1 tab PO DAILY 01/05/22 01/05/22 History Allergies Allergy/AdvReac Type Severity Reaction Status Date / Time aspirin Allergy Anaphylaxis Verified 01/05/22 17:09 ibuprofen [From Motrin] Allergy Anaphylaxis Verified 01/05/22 17:09 latex Allergy Rash/Hives Verified 01/05/22 17:09 Penicillins Allergy Anaphylaxis Verified 01/05/22 17:09 Physical Exam Vitals: Vital Signs Temp Pulse Resp BP Pulse Ox 01/05/22 17:20 99 18 92/64 100 01/05/22 15:48 101 H 18 107/66 100 01/05/22 15:00 108 H 16 98/60 99 01/05/22 14:30 92 18 102/64 99 01/05/22 14:00 96 16 113/59 100 01/05/22 12:47 98.0 F 104 H 20 119/70 100 Intake and Output 01/05/22 01/05/22 01/05/22 06:59 14:59 22:59 Other: Weight 68.039 kg Results CBC & Chem 7: 01/05/22 13:24 01/05/22 16:07 Labs: Abnormal Lab Results - Last 24 Hours (Table) 01/05/22 01/05/22 01/05/22 Range/Units 13:24 13:24 13:24 Hct 47.3 H (34.0-46.0) % Neutrophils # 8.5 H (1.3-7.7) k/uL Lymphocytes # 0.5 L (1.0-4.8) k/uL D-Dimer 0.81 H (<0.60) mg/L FEU VBG pH (7.31-7.41) VBG pCO2 (37-51) mmHg VBG HCO3 (24-28) mmol/L Sodium 136 L (137-145) mmol/L Potassium (3.5-5.1) mmol/L Chloride (98-107) mmol/L Carbon Dioxide 8 L* (22-30) mmol/L Glucose 415 H (74-99) mg/dL POC Glucose (mg/dL) (70-110) mg/dL Total Protein 8.3 H (6.3-8.2) g/dL Urine Appearance (Clear) Urine Protein (Negative) Urine Glucose (UA) (Negative) Urine Ketones (Negative) Urine Blood (Negative) Urine RBC (0-5) /hpf Urine WBC (0-5) /hpf Ur Squamous Epith Cells (0-4) /hpf Urine Bacteria (None) /hpf Urine Mucus (None) /hpf 01/05/22 01/05/22 01/05/22 Range/Units 13:44 15:49 15:51 Hct (34.0-46.0) % Neutrophils # (1.3-7.7) k/uL Lymphocytes # (1.0-4.8) k/uL D-Dimer (<0.60) mg/L FEU VBG pH (7.31-7.41) VBG pCO2 (37-51) mmHg VBG HCO3 (24-28) mmol/L Sodium (137-145) mmol/L Potassium (3.5-5.1) mmol/L Chloride (98-107) mmol/L Carbon Dioxide (22-30) mmol/L Glucose (74-99) mg/dL POC Glucose (mg/dL) 297 H 270 H (70-110) mg/dL Total Protein (6.3-8.2) g/dL Urine Appearance Cloudy H (Clear) Urine Protein 1+ H (Negative) Urine Glucose (UA) 4+ H (Negative) Urine Ketones 4+ H (Negative) Urine Blood Large H (Negative) Urine RBC 10 H (0-5) /hpf Urine WBC 9 H (0-5) /hpf Ur Squamous Epith Cells 6 H (0-4) /hpf Urine Bacteria Rare H (None) /hpf Urine Mucus Rare H (None) /hpf 01/05/22 01/05/22 01/05/22 Range/Units 16:07 16:07 16:43 Hct (34.0-46.0) % Neutrophils # (1.3-7.7) k/uL Lymphocytes # (1.0-4.8) k/uL D-Dimer (<0.60) mg/L FEU VBG pH 7.13 L* (7.31-7.41) VBG pCO2 32 L (37-51) mmHg VBG HCO3 11 L (24-28) mmol/L Sodium 135 L (137-145) mmol/L Potassium 5.3 H (3.5-5.1) mmol/L Chloride 109 H (98-107) mmol/L Carbon Dioxide 11 L (22-30) mmol/L Glucose 274 H (74-99) mg/dL POC Glucose (mg/dL) 269 H (70-110) mg/dL Total Protein (6.3-8.2) g/dL Urine Appearance (Clear) Urine Protein (Negative) Urine Glucose (UA) (Negative) Urine Ketones (Negative) Urine Blood (Negative) Urine RBC (0-5) /hpf Urine WBC (0-5) /hpf Ur Squamous Epith Cells (0-4) /hpf Urine Bacteria (None) /hpf Urine Mucus (None) /hpf 01/05/22 01/05/22 Range/Units 16:44 17:18 Hct (34.0-46.0) % Neutrophils # (1.3-7.7) k/uL Lymphocytes # (1.0-4.8) k/uL D-Dimer (<0.60) mg/L FEU VBG pH (7.31-7.41) VBG pCO2 (37-51) mmHg VBG HCO3 (24-28) mmol/L Sodium (137-145) mmol/L Potassium (3.5-5.1) mmol/L Chloride (98-107) mmol/L Carbon Dioxide (22-30) mmol/L Glucose (74-99) mg/dL POC Glucose (mg/dL) 272 H 279 H (70-110) mg/dL Total Protein (6.3-8.2) g/dL Urine Appearance (Clear) Urine Protein (Negative) Urine Glucose (UA) (Negative) Urine Ketones (Negative) Urine Blood (Negative) Urine RBC (0-5) /hpf Urine WBC (0-5) /hpf Ur Squamous Epith Cells (0-4) /hpf Urine Bacteria (None) /hpf Urine Mucus (None) /hpf
--- NOTE | 2022-01-05 18:29 | P.DS ---
Providers Date of admission: 01/05/22 16:28 Expected date of discharge: 01/05/22 Attending physician: Nitesh Cutler MD Primary care physician: Kenji Flores [facility] Course: AMA note Patient is a 31-year-old female with PMH of type 1 diabetes mellitus on insulin pump, Marissa-Danlos syndrome, rheumatoid arthritis, POTS and fibromyalgia that presents the ED for chest pain. Patient reports left-sided posterior neck pain that started this morning. Her neck pain was associated with photophobia. Patient reports that the symptoms are consistent with migraines that she has suffered in the past. Shortly after she experienced left-sided chest pain. Chest pain was sharp and stabbing in nature and radiated to the back. Pain was 10 out of 10 in severity. Pain is worsened with deep inspiration. There was no alleviating factors. She also experienced one episode of NBNB vomiting. These symptoms prompted her to come to the ED. She denies any cough or recent infection. She denies any fever or chills. She denies any shortness of breath or palpitations. She denies any lightheadedness. She denies any stiff neck. She denies any abdominal pain, changes in urination or bowel habits. No changes in appetite or weight. She denies any lightheadedness, numbness/weakness/tingling of the extremities. Patient reports being diagnosed with Marissa-Danlos syndrome, rheumatoid arthritis, POTS in [place]. She has seen a field case manager once during her . She has never been started on medication. 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 In the ED, she was noted to be tachycardic with heart rate in the 100s. Vital signs are otherwise stable. CBC showed hematocrit of 47.3. D-dimer was 0.81. Coagulation panel was negative. CMP showed sodium 136, bicarb of 8 and glucose of 415. Initial troponin was less than 0.012, EKG showing sinus tachycardia. Urinalysis showed 4+ ketones, large blood, negative for nitrite or leukocyte esterase. Chest x-ray was negative. CTA chest was negative for PE or aortic dissection. Patient is admitted for diabetic ketoacidosis. Patient was started on insulin drip and D5 half-normal saline with KCl. Patient decided to leave against medical advice. Please refer to H&P for physical exam. Discharge Diagnosis: #Diabetic ketoacidosis #Chest pain #Pulmonary nodules #Elevated d-dimer #Migraine headache Chronic conditions: Marissa-Danlos syndrome, rheumatoid arthritis, POTS and fibromyalgia Patient Condition at Discharge: Stable Plan - Discharge Summary New Discharge Prescriptions: No Action INSULIN LISPRO (For Pump) [humaLOG (For Pump)] 0.01 units SQ-PUMP CONTINUOUS Aviane Tab 1 tab PO DAILY Discharge Medication List INSULIN LISPRO (For Pump) [humaLOG (For Pump)] 0.01 units SQ-PUMP CONTINUOUS 01/03/20 [History] Aviane Tab 1 tab PO DAILY 01/05/22 [History] Follow up Appointment(s)/Referral(s): Kenji Flores MD [Primary Care Provider] - 1-2 days Discharge Disposition: Left Against Medical Advice
[2022-01-05] MEDS ORDERED: D5-0.45% NACL WITH KCL 20MEQ/L 1,000 ML IV SCH (23:00)
[2022-01-06] MEDS ORDERED: HEPARIN SODIUM,PORCINE/PF 5,000 UNIT/0.5 ML SYRINGE SQ SCH
== END 2022-01-05 18:21 | disposition left against medical advice (07) | DRG 638 ==
LOC: EC 12:46 → 3SCARD 16:28
PROVIDERS: ADMIT Family Medicine; ATTEND Family Medicine
DX: E10.10 Type 1 diabetes mellitus with ketoacidosis without coma (principal); J90 Pleural effusion, not elsewhere classified; Q79.60 Ehlers-Danlos syndrome, unspecified; Z53.29 Procedure and treatment not carried out because of patient's decision for other reasons; F41.9 Anxiety disorder, unspecified; R00.0 Tachycardia, unspecified; G43.909 Migraine, unspecified, not intractable, without status migrainosus; G90.A Postural orthostatic tachycardia syndrome [POTS]; M06.9 Rheumatoid arthritis, unspecified; M79.7 Fibromyalgia; Z79.4 Long term (current) use of insulin; Z96.41 Presence of insulin pump (external) (internal); Z79.899 Other long term (current) drug therapy; Z88.6 Allergy status to analgesic agent; Z88.0 Allergy status to penicillin; Z91.040 Latex allergy status
CPT/HCPCS: 36415; 71046; 71275; 80051; 80053; 81001; 82009; 82565; 82803; 82947; 83735; 84100; 84484; 84520; 85025; 85379; 85610; 85730; 93005; 96361; 96365; 96366; 96374; 99285

== ENCOUNTER 2023-04-19 18:28 | Emergency (ER) | payer OTHER ==
[2023-04-19 19:01] VITALS: TEMP 99.3
[2023-04-19 19:03] LABS: Glucose,Whole Blood 63 mg/dL (70-110)
--- NOTE | 2023-04-19 20:09 | ED ---
General Adult HPI - General Chief complaint: Nausea/Vomiting/Diarrhea Stated complaint: Hyplogycemia-14WKS PREG Time Seen by Provider: 04/19/23 19:23 Source: patient Mode of arrival: ambulatory Limitations: no limitations - History of Present Illness Initial comments: 33-year-old female who is currently 14 weeks with past medical history significant for emesis and Arbor yesterday continued symptoms of nausea and vomiting with this . Reports that she was provided prescription for Phenergan suppositories and also Reglan p.o. Reports that Zofran makes her more nauseous. Reports that today onset of diarrhea. Therefore, she was unable to tolerate Phenergan suppositories and has had ongoing nausea and vomiting. Reports she has been unable to tolerate food or fluids and notes that her newest blood glucose monitor found her to be hypoglycemic prompting presentation to the ED for further evaluation. Denies abdominal pain. Denies vaginal bleeding. At this time, patient reports nausea has significantly improved and she would like to attempt p.o. challenge. Patient also reports no more occurrences of diarrhea. No other complaints at this time. - Related Data Home Medications Medication Instructions Recorded Confirmed INSULIN LISPRO (For Pump) [humaLOG 0.01 units SQ-PUMP CONTINUOUS 01/03/20 01/05/22 (For Pump)] Aviane Tab 1 tab PO DAILY 01/05/22 01/05/22 Allergies Allergy/AdvReac Type Severity Reaction Status Date / Time aspirin Allergy Anaphylaxis Verified 04/19/23 18:57 ibuprofen [From Motrin] Allergy Anaphylaxis Verified 04/19/23 18:57 latex Allergy Rash/Hives Verified 04/19/23 18:57 Penicillins Allergy Anaphylaxis Verified 04/19/23 18:57 Review of Systems ROS Statement: Those systems with pertinent positive or pertinent negative responses have been documented in the HPI. ROS Other: All systems not noted in ROS Statement are negative. 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 No rebound guarding or rigidity.) Neurological exam: Present: alert, oriented X3 Skin exam: Present: warm, dry Course Vital Signs 04/19/23 04/19/23 18:51 20:22 Temperature 99.3 F Pulse Rate 96 100 Respiratory 18 16 Rate Blood Pressure 105/72 100/62 O2 Sat by Pulse 98 Oximetry Medical Decision Making - Medical Decision Making Was pt. sent in by a medical professional or institution (, PA, STERILE PROC TECH, urgent care, hospital, or penitentiary...) When possible be specific @ -No Did you speak to anyone other than the patient for history (EMS, parent, family, police, friend...)? What history was obtained from this source @ -No Did you review nursing and triage notes (agree or disagree)? Why? @ -I reviewed and agree with nursing and triage notes Were old charts reviewed (outside hosp., previous admission, EMS record, old EKG, old radiological studies, urgent care reports/EKG's, penitentiary records)? Report findings @ -No old charts were reviewed Differential Diagnosis (chest pain, altered mental status, abdominal pain women, abdominal pain men, vaginal bleeding, weakness, fever, dyspnea, syncope, headache, dizziness, GI bleed, back pain, seizure, CVA, palpatations, mental health, musculoskeletal)? @ -Differential Abdominal Pain Women: Appendicitis, Cholecystitis, diverticulosis, ischemic bowel, pancreatitis, hepatitis, UTI, gastroenteritis, AAA, incarcerated hernia, bowel obstruction, constipation, inflammatory bowel, hepatitis, peptic ulcer disease, splenic infarction, perforated viscus, vulvitis, ovarian torsion, PID, kidney stone, placenta abruption, this is not meant to be an all-inclusive list EKG interpreted by me (3pts min.). @ -None X-rays interpreted by me (1pt min.). @ -None done CT interpreted by me (1pt min.). @ -None done U/S interpreted by me (1pt. min.). @ -None done What testing was considered but not performed or refused? (CT, X-rays, U/S, labs)? Why? @ -None What meds were considered but not given or refused? Why? @ -None Did you discuss the management of the patient with other professionals (professionals i.e. , PA, STERILE PROC TECH, lab, RT, psych nurse, 7th grade social studies teacher, glass blowing lathe operator, teacher, home school liaison officer, case packer and sealer)? Give summary @ -No Was smoking cessation discussed for >3mins.? @ -No Was critical care preformed (if so, how long)? @ -No Were there social determinants of health that impacted care today? How? (Homelessness, low income, unemployed, alcoholism, drug addiction, transportation, low edu. Level, literacy, decrease access to med. care, skilled nursing, rehab)? @ -No Was there de-escalation of care discussed even if they declined (Discuss DNR or withdrawal of care, Hospice)? DNR status @ -No What co-morbidities impacted this encounter? (DM, HTN, Smoking, COPD, CAD, Cancer, CVA, ARF, Chemo, Hep., AIDS, mental health diagnosis, sleep apnea, morbid obesity)? @ -Diabetes, Was patient admitted / discharged? Hospital course, mention meds given and route, prescriptions, significant lab abnormalities, going to OR and other pertinent info. @ -Discharge 33-year-old female with past medical history significant for type 1 diabetes on insulin pump who is G4, presenting to the ED with a chief complaint of nausea vomiting diarrhea. Patient reports ongoing problems with nausea and vomiting and was recently discharged at [facility] with prescriptions for Phenergan suppositories and p.o. Reglan. Reports today onset of 2 episodes of diarrhea which have since resolved however secondary to this has been unable to take Phenergan suppositories. Secondary this has been unable to tolerate p.o. intake and reports her continuous blood glucose monitor reported that her sugar was low. At this time, patient reports symptoms resolved. Patient given a Phenergan suppository here. Patient p.o. challenged here and repeat blood sugar 126. Patient tolerating p.o. without difficulties at this time. Discharged home in stable condition advised to follow-up with her PCP/METHODS EXAMINER. Discussed return precautions with patient and family who verbalized agreement. Undiagnosed new problem with uncertain prognosis? @ -No Drug Therapy requiring intensive monitoring for toxicity (Heparin, Nitro, Insul in, Cardizem)? @ -No Were any procedures done? @ -No Diagnosis/symptom? @ -Nausea, vomiting, diarrhea Acute, or Chronic, or Acute on Chronic? @ -Acute on chronic nausea and vomiting, acute diarrhea Uncomplicated (without systemic symptoms) or Complicated (systemic symptoms)? @ -Uncomplicated Side effects of treatment? @ -No Exacerbation, Progression, or Severe Exacerbation? @ -No Poses a threat to life or bodily function? How? (Chest pain, [place], GA, pneumonia, PE, COPD, DKA, ARF, appy, cholecystitis, CVA, Diverticulitis, Homicidal, Suicidal, threat to staff... and all critical care pts) @ -No - Lab Data Result diagrams: 04/19/23 20:15 04/19/23 20:15 Lab Results 04/19/23 04/19/23 04/19/23 Range/Units 19:01 20:15 20:15 WBC 8.9 (3.8-10.6) k/uL RBC 4.17 (3.80-5.40) m/uL Hgb 13.4 (11.4-16.0) gm/dL Hct 38.5 (34.0-46.0) % MCV 92.3 (80.0-100.0) fL MCH 32.1 (25.0-35.0) pg MCHC 34.8 (31.0-37.0) g/dL RDW 13.1 (11.5-15.5) % Plt Count 268 (150-450) k/uL MPV 7.0 Neutrophils % 81 % Lymphocytes % 14 % Monocytes % 3 % Eosinophils % 1 % Basophils % 0 % Neutrophils # 7.1 (1.3-7.7) k/uL Lymphocytes # 1.2 (1.0-4.8) k/uL Monocytes # 0.3 (0-1.0) k/uL Eosinophils # 0.1 (0-0.7) k/uL Basophils # 0.0 (0-0.2) k/uL Sodium (137-145) mmol/L Potassium (3.5-5.1) mmol/L Chloride (98-107) mmol/L Carbon Dioxide (22-30) mmol/L Anion Gap mmol/L BUN (7-17) mg/dL Creatinine (0.52-1.04) mg/dL Est GFR (CKD-EPI)AfAm (>60 ml/min/1.73 sqM) Est GFR (CKD-EPI)NonAf (>60 ml/min/1.73 sqM) Glucose (74-99) mg/dL POC Glucose (mg/dL) 63 L (70-110) mg/dL POC Glu Commercial Account Executive ID Eleonora Cortez Calcium (8.4-10.2) mg/dL Total Bilirubin (0.2-1.3) mg/dL AST (14-36) U/L ALT (4-34) U/L Alkaline Phosphatase (38-126) U/L Total Protein (6.3-8.2) g/dL Albumin (3.5-5.0) g/dL Urine Color Light Yellow Urine Appearance Clear (Clear) Urine pH 5.5 (5.0-8.0) Ur Specific [place] 1.009 (1.001-1.035) Urine Protein Negative (Negative) Urine Glucose (UA) Negative (Negative) Urine Ketones 1+ H (Negative) Urine Blood Negative (Negative) Urine Nitrite Negative (Negative) Urine Bilirubin Negative (Negative) Urine Urobilinogen <2.0 (<2.0) mg/dL Ur Leukocyte Esterase Negative (Negative) Influenza Type A (PCR) (Not Detectd) Influenza Type B (PCR) (Not Detectd) RSV (PCR) (Not Detectd) SARS-CoV-2 (PCR) (Not Detectd) 04/19/23 04/19/23 04/19/23 Range/Units 20:15 20:15 20:20 WBC (3.8-10.6) k/uL RBC (3.80-5.40) m/uL Hgb (11.4-16.0) gm/dL Hct (34.0-46.0) % MCV (80.0-100.0) fL MCH (25.0-35.0) pg MCHC (31.0-37.0) g/dL RDW (11.5-15.5) % Plt Count (150-450) k/uL MPV Neutrophils % % Lymphocytes % % Monocytes % % Eosinophils % % Basophils % % Neutrophils # (1.3-7.7) k/uL Lymphocytes # (1.0-4.8) k/uL Monocytes # (0-1.0) k/uL Eosinophils # (0-0.7) k/uL Basophils # (0-0.2) k/uL Sodium 136 L (137-145) mmol/L Potassium 3.5 (3.5-5.1) mmol/L Chloride 110 H (98-107) mmol/L Carbon Dioxide 19 L (22-30) mmol/L Anion Gap 7 mmol/L BUN 3 L (7-17) mg/dL Creatinine 0.44 L (0.52-1.04) mg/dL Est GFR (CKD-EPI)AfAm >90 (>60 ml/min/1.73 sqM) Est GFR (CKD-EPI)NonAf >90 (>60 ml/min/1.73 sqM) Glucose 98 (74-99) mg/dL POC Glucose (mg/dL) 100 (70-110) mg/dL POC Glu Commercial Account Executive Aishwarya Mares Calcium 8.5 (8.4-10.2) mg/dL Total Bilirubin 0.4 (0.2-1.3) mg/dL AST 21 (14-36) U/L ALT 8 (4-34) U/L Alkaline Phosphatase 79 (38-126) U/L Total Protein 6.4 (6.3-8.2) g/dL Albumin 3.5 (3.5-5.0) g/dL Urine Color Urine Appearance (Clear) Urine pH (5.0-8.0) Ur Specific [place] (1.001-1.035) Urine Protein (Negative) Urine Glucose (UA) (Negative) Urine Ketones (Negative) Urine Blood (Negative) Urine Nitrite (Negative) Urine Bilirubin (Negative) Urine Urobilinogen (<2.0) mg/dL Ur Leukocyte Esterase (Negative) Influenza Type A (PCR) Not Detected (Not Detectd) Influenza Type B (PCR) Not Detected (Not Detectd) RSV (PCR) Not Detected (Not Detectd) SARS-CoV-2 (PCR) Not Detected (Not Detectd) 04/19/23 Range/Units 21:46 WBC (3.8-10.6) k/uL RBC (3.80-5.40) m/uL Hgb (11.4-16.0) gm/dL Hct (34.0-46.0) % MCV (80.0-100.0) fL MCH (25.0-35.0) pg MCHC (31.0-37.0) g/dL RDW (11.5-15.5) % Plt Count (150-450) k/uL MPV Neutrophils % % Lymphocytes % % Monocytes % % Eosinophils % % Basophils % % Neutrophils # (1.3-7.7) k/uL Lymphocytes # (1.0-4.8) k/uL Monocytes # (0-1.0) k/uL Eosinophils # (0-0.7) k/uL Basophils # (0-0.2) k/uL Sodium (137-145) mmol/L Potassium (3.5-5.1) mmol/L Chloride (98-107) mmol/L Carbon Dioxide (22-30) mmol/L Anion Gap mmol/L BUN (7-17) mg/dL Creatinine (0.52-1.04) mg/dL Est GFR (CKD-EPI)AfAm (>60 ml/min/1.73 sqM) Est GFR (CKD-EPI)NonAf (>60 ml/min/1.73 sqM) Glucose (74-99) mg/dL POC Glucose (mg/dL) 126 H (70-110) mg/dL POC Glu Commercial Account Executive ID Blake Wright Calcium (8.4-10.2) mg/dL Total Bilirubin (0.2-1.3) mg/dL AST (14-36) U/L ALT (4-34) U/L Alkaline Phosphatase (38-126) U/L Total Protein (6.3-8.2) g/dL Albumin (3.5-5.0) g/dL Urine Color Urine Appearance (Clear) Urine pH (5.0-8.0) Ur Specific [place] (1.001-1.035) Urine Protein (Negative) Urine Glucose (UA) (Negative) Urine Ketones (Negative) Urine Blood (Negative) Urine Nitrite (Negative) Urine Bilirubin (Negative) Urine Urobilinogen (<2.0) mg/dL Ur Leukocyte Esterase (Negative) Influenza Type A (PCR) (Not Detectd) Influenza Type B (PCR) (Not Detectd) RSV (PCR) (Not Detectd) SARS-CoV-2 (PCR) (Not Detectd) Disposition Clinical Impression: Nausea vomiting and diarrhea Disposition: HOME SELF-CARE Condition: Good Additional Instructions: Please return to the Emergency Department if symptoms worsen or any other concer ns. Please follow-up with your METHODS EXAMINER. Is patient prescribed a controlled substance at d/c from ED?: No Referrals: Kenji Flores MD [Primary Care Provider] - 1-2 days Time of Disposition: 22:01
[2023-04-19] MEDS: PROMETHAZINE SUPPOSITORY 25 MG SUPP RECTAL STA (20:19)
[2023-04-19 20:21] LABS: Glucose,Whole Blood 100 mg/dL (70-110)
[2023-04-19 20:23] LABS: Basophils % (A) 0 %; Eosinophils # (A) 0.1 k/uL (0-0.7); Eosinophils % (A) 1 %; HCT 38.5 % (34.0-46.0); HGB 13.4 gm/dL (11.4-16.0); Lymphocytes # (A) 1.2 k/uL (1.0-4.8); Lymphocytes % (A) 14 %; MCH 32.1 pg (25.0-35.0); MCHC 34.8 g/dL (31.0-37.0); MCV 92.3 fL (80.0-100.0); Monocytes # (A) 0.3 k/uL (0-1.0); Monocytes % (A) 3 %; Neutrophils # (A) 7.1 k/uL (1.3-7.7); Neutrophils % (A) 81 %; Platelet Count 268 k/uL (150-450); RBC 4.17 m/uL (3.80-5.40); RDW 13.1 % (11.5-15.5); WBC 8.9 k/uL (3.8-10.6)
[2023-04-19 20:40] LABS: ALT 8 U/L (4-34); AST 21 U/L (14-36); African American GFR (CKD) >90 (>60 ml/min/1.73 sqM); Albumin 3.5 g/dL (3.5-5.0); Alkaline Phosphatase 79 U/L (38-126); Anion Gap 7 mmol/L; Blood Urea Nitrogen 3 mg/dL (7-17); Calcium 8.5 mg/dL (8.4-10.2); Carbon Dioxide 19 mmol/L (22-30); Chloride 110 mmol/L (98-107); Glucose 98 mg/dL (74-99); Non-African American GFR(CKD) >90 (>60 ml/min/1.73 sqM); Potassium 3.5 mmol/L (3.5-5.1); Sodium 136 mmol/L (137-145); Total Bilirubin 0.4 mg/dL (0.2-1.3); Total Protein 6.4 g/dL (6.3-8.2)
[2023-04-19 21:18] VITALS: PULSE 100; RESP 16
[2023-04-19 21:20] LABS: Appearance,Urine Clear (Clear); Bilirubin,Urine Negative (Negative); Blood,Urine Negative (Negative); Color,Urine Light Yellow; Glucose,Urine (UA) Negative (Negative); Ketones,Urine 1+ (Negative); Leukocyte Esterase,Urine Negative (Negative); Nitrite,Urine Negative (Negative); PH, Urine 5.5 (5.0-8.0); Protein,Urine Negative (Negative); Specific Gravity,Urine 1.009 (1.001-1.035); Urobilinogen,Urine <2.0 mg/dL (<2.0)
[2023-04-19 21:48] LABS: Glucose,Whole Blood 126 mg/dL (70-110)
[2023-04-19 22:17] VITALS: BP 108/68
== END 2023-04-19 22:10 | disposition home or self-care (01) ==
LOC: EC 18:28
DX: O21.9 Vomiting of pregnancy, unspecified (principal); O26.891 Other specified pregnancy related conditions, first trimester; R19.7 Diarrhea, unspecified; O24.911 Unspecified diabetes mellitus in pregnancy, first trimester; E11.9 Type 2 diabetes mellitus without complications; Z79.4 Long term (current) use of insulin; Z86.59 Personal history of other mental and behavioral disorders; Z91.040 Latex allergy status; Z88.0 Allergy status to penicillin; Z88.6 Allergy status to analgesic agent; Z20.822 Contact with and (suspected) exposure to COVID-19; Z3A.14 14 weeks gestation of pregnancy
CPT/HCPCS: 36415; 80053; 81003; 85025; 87636; 99284

== ENCOUNTER 2023-07-29 05:02 | Emergency (ER) | payer OTHER ==
[2023-07-29 05:15] VITALS: BP 101/79; PULSE 104; RESP 18; TEMP 98.1
== END 2023-07-29 05:52 | disposition home or self-care (01) ==
LOC: EC 05:02
DX: Z53.21 Procedure and treatment not carried out due to patient leaving prior to being seen by health care provider (principal)
CPT/HCPCS: 99499